=== PATIENT | female | born 1965 | race Caucasian/White ===

== ENCOUNTER 2021-02-20 07:36 | Emergency (ER) | payer OTHER ==
[2021-02-20] MEDS ORDERED: VALTREX1000 MG PO (08:16)
[2021-02-20] MEDS ORDERED: NORCO 5-325 TA1 EACH PO (08:16)
== END 2021-02-20 08:25 | disposition home or self-care (01) ==
LOC: FER 07:36
DX: B02.9 Zoster without complications (principal)
CPT/HCPCS: 99282